=== PATIENT | female | born 1940 | race Asian ===

== ENCOUNTER 2018-09-09 06:00 | Day surgery (SDC) | payer OTHER ==
[~2018-09-09] VITALS: Ht 160 cm; Wt 64.7 kg
[2018-09-09 07:09] VITALS: Ht 160 cm; Wt 64.7 kg
[2018-09-09 07:15] VITALS: BP 132/63; PULSE 73; RESP 16
[2018-09-09] MEDS ORDERED: ASPI-903 PO (07:18)
[2018-09-09] MEDS ORDERED: CALC500T11 PO (07:20)
[2018-09-09] MEDS ORDERED: LATA2.5D2 BOTH EYES (07:20)
[2018-09-09] MEDS ORDERED: ATOR40TA68 PO (07:20)
[2018-09-09] MEDS ORDERED: MTF1000T PO (07:20)
[2018-09-09] MEDS ORDERED: OXYB5TAB7 PO (07:20)
[2018-09-09] MEDS ORDERED: LIDOCAINE 2% (SDV) 5 ML INJ ONE (07:34)
[2018-09-09] MEDS ORDERED: PROPOFOL 40 ML ONE ×2 (07:34→08:02)
--- NOTE | 2018-09-09 08:01 | PREAC ---
Date/Time of Note Date/Time of Note DATE: 09/09/18 TIME: 07:59 Anesthesia Eval and Record Evaluation Time Pre-Procedure Interview DATE: 09/09/18 TIME: 07:59 Age 78 Sex female NPO: 8 hrs Preoperative diagnosis screening colonoscopy Planned procedure colonoscopy Past Medical History Past Medical History: Includes Cardio: Dyslipidemia Endo: Diabetes Surgery & Anesthesia Issues No known issue Meds Anticoagulation: No Beta Aranza within 24 hr: No Reason Beta Aranza not given: Pt. not on B-Aranza Reported Medications Calcium Carbonate (Oysco-500) 500 Mg Tablet, 500 MG PO, TAB 09/09/18 Oxybutynin Chloride* (Ditropan*) 5 Mg Tab, 5 MG PO TID, TAB 09/09/18 Metformin* (Glucophage*) 1,000 Mg Tablet, 500 MG PO BID, #60 TAB 09/09/18 Latanoprost (Latanoprost) 2.5 Ml Drops, 1 DROP BOTH EYES QHS, #1 BOTTLE 09/09/18 Atorvastatin* (Atorvastatin*) 40 Mg Tablet, 40 MG PO QHS, #30 TAB 09/09/18 Aspirin* (Aspirin* Chew) 81 Mg Tab.chew, 81 MG PO DAILY, TAB.CHEW 09/09/18 Meds reviewed: Yes Allergies Coded Allergies: No Known Drug Allergies (Verified Allergy, Unknown, 09/09/18) Allergies Reviewed: Yes Labs/Studies Labs Reviewed: Reviewed by anesthesiologist test: N/A Pre-procedure Exam Last vitals Vital Signs Date Temp Pulse Resp B/P (MAP) Pulse Ox O2 O2 Flow FiO2 Time Delivery Rate 09/09/18 97.1 73 16 132/63 100 Room Air 07:15 (86) Airway: Adequate mouth opening, Adequate thyromental dist Mallampati: Mallampati II Teeth: Normal Lung: Normal Heart: Normal ASA Physical Status ASA physical status: 2 Emergency: None Planned Anesthetic General/MAC: MAC Planned Pain Management Parenteral pain med Pre-operative Attestations Prior to commencing anesthesia and surgery, the patient was re-evaluated, there was verification of: *The patient's identity *The results of appropriate recent lab work and preoperative vital signs *The above evaluation not changing prior to induction *Anesthetic plan, risk benefits, alternative and complications discussed with patient/family; questions answered; patient/family understands, accepts and wishes to proceed. Jai Rivers M.D. Sep 09, 2018 08:01
[2018-09-09] MEDS ORDERED: LIDOCAINE 100 MG SYRINGE ONE (08:02)
[2018-09-09 08:36] VITALS: BP 117/59; PULSE 82; RESP 18
--- NOTE | 2018-09-09 09:25 | PAC ---
Date/Time of Note Date/Time of Note DATE: 09/09/18 TIME: 09:25 Post-Anesthesia Notes Post-Anesthesia Note Last documented vital signs Vital Signs Date Temp Pulse Resp B/P (MAP) Pulse Ox O2 O2 Flow FiO2 Time Delivery Rate 09/09/18 97.1 73 16 132/63 100 Room Air 07:15 (86) Activity: WNL Respiratory function: WNL Cardiovascular function: WNL Mental status: Baseline Pain reasonably controlled: Yes Hydration appropriate: Yes Nausea/Vomiting absent: Yes Jai Rivers M.D. Sep 09, 2018 09:25
== END 2018-09-09 11:09 | disposition home or self-care (01) ==
LOC: GIL 06:00
PROVIDERS: ATTEND Internal Medicine Gastroenterology
DX: Z12.11 Encounter for screening for malignant neoplasm of colon (principal); D12.2 Benign neoplasm of ascending colon; K64.4 Residual hemorrhoidal skin tags; E11.9 Type 2 diabetes mellitus without complications; E78.5 Hyperlipidemia, unspecified; Z79.82 Long term (current) use of aspirin; Z79.84 Long term (current) use of oral hypoglycemic drugs
CPT/HCPCS: 45385; 82962; 88305; J2001; Z7610